=== PATIENT | female | born 1990 | race Caucasian/White ===

== ENCOUNTER → 2021-01-22 | Outpatient (CLI) | payer OTHER ==
--- NOTE | 2021-01-24 15:19 | RAD ---
EXAMINATION: CT PELVIS WO, 01/22/2021 11:29 AM CLINICAL INDICATION: Preop planning. Acetabular retroversion. COMPARISON: None available TECHNIQUE: Helical CT imaging performed of the pelvis without the use of intravenous contrast per Con formis. Sagittal and coronal reformats were obtained. One or more of the following individualized dose reduction techniques were utilized for this examinat ion: 1. Automated exposure control 2. Adjustment of the mA and/or kV according to patient size 3. Use of iterative reconstruction technique. FINDINGS: No acute fracture or malalignment. The hip joint spaces are maintained. 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 Pubic symphysis, sacroiliac joints, and lower lumbar spine are evelia l. Joint spaces of the knee are maintained. There is no joint effusion or soft tissue abnormality. Vi sualized intrapelvic contents are unremarkable. IMPRESSION: Bilateral cranial acetabular retroversion. No acute osseous abnormality. Electronically signed by: Madisyn Evans MD (01/24/2021 3:17 PM) [id number]
== END ==
LOC: CT 10:58
PROVIDERS: ATTEND Orthopaedic Surgery
DX: M25.852 Other specified joint disorders, left hip (principal); M25.851 Other specified joint disorders, right hip
CPT/HCPCS: 72192